=== PATIENT | female | born 1965 | race Caucasian/White ===

== ENCOUNTER 2016-09-04 11:57 | Emergency (ER) | payer BC | END 2016-09-04 14:04 | disposition home or self-care (01) | LOC: ER 11:57 | DX: S99.911A Unspecified injury of right ankle, initial encounter (principal); F17.200 Nicotine dependence, unspecified, uncomplicated; Z88.0 Allergy status to penicillin; Z88.5 Allergy status to narcotic agent; W19.XXXA Unspecified fall, initial encounter | CPT/HCPCS: 73610-RT; 93005; 99284 ==